=== PATIENT | female | born 1995 | race Asian ===

== ENCOUNTER 2021-06-26 21:28 | Emergency (ER) | payer OTHER ==
[~2021-06-26] VITALS: Ht 160 cm; Wt 45.4 kg
[2021-06-26 22:35] VITALS: BP 122/65
[2021-06-26] MEDS ORDERED: TDAP [DIPH/PERTUSSIS/TET] 0.5 ML VIAL IM ONE ×2 (22:35→23:00)
[2021-06-26] MEDS ORDERED: AMOX-430 PO (22:38)
[2021-06-26] MEDS ORDERED: AMOX/CLAVULANATE 875 MG TABLET ONE (22:43)
--- NOTE | 2021-06-26 22:48 | NUR ---
Patient discharged to home in stable condition. Written and verbal after care instructions given. Patient verbalizes understanding of instruction.
[2021-06-26] MEDS ORDERED: AMOX/CLAVULANATE 875 MG TABLET PO ONE (23:00)
== END 2021-06-26 22:49 | disposition home or self-care (01) ==
LOC: ER 21:35
DX: S51.831A Puncture wound without foreign body of right forearm, initial encounter (principal); W54.0XXA Bitten by dog, initial encounter; Y93.89 Activity, other specified; Y92.89 Other specified places as the place of occurrence of the external cause; Y99.8 Other external cause status
CPT/HCPCS: 90715